=== PATIENT | female | born 1980 | race Caucasian/White ===

== ENCOUNTER → 2019-04-26 14:11 | Outpatient (CLI) | payer SELFPAY ==
[2019-04-26 13:20] VITALS: BMI 30.3
--- NOTE | 2019-04-26 14:21 | RAD_ITS ---
STUDY: X-RAY - RIGHT WRIST REASON FOR EXAM: Female, 38 years old. PAIN W/ ROM, HX FALL TECHNIQUE: 3 view(s) of the wrist were obtained. COMPARISON: None. FINDINGS: There is a transverse fracture of the distal radius extending to the distal radioulnar joint. There is approximately 2 mm of displacement. Normal radiocarpal articulation. Normal distal radioulnar articulation. Normal carpal bones. Normal carpal articulations. Normal carpometacarpal articulation of the thumb. Normal second through fifth carpometacarpal articulations. Normal visualized metacarpal bones. There is soft tissue swelling of the wrist. RAD/Wrist min 3 Views IMPRESSION: Distal radial fracture. Electronically Signed: Eris Burkett MD (Brooks) at 15:03 EST , Service support ,
== END ==
PROVIDERS: Family Provider Family Medicine; PCP Family Medicine; Referring Provider Physician Assistant Medical; Visit Provider Physician Assistant Medical
DX: M25.531 Pain in right wrist (principal)
CPT/HCPCS: 73110

== ENCOUNTER → 2019-04-30 14:27 | Outpatient (CLI) | payer SELFPAY ==
[2019-04-30 14:01] VITALS: BMI 30.3
--- NOTE | 2019-04-30 14:28 | RAD_ITS ---
STUDY: X-RAY - RIGHT WRIST REASON FOR EXAM: Female, 38 years old. Injury, fx, cast TECHNIQUE: 3 view(s) of the wrist were obtained. COMPARISON: 04/26/2019 FINDINGS: Cast material obscures underlying bony detail. Distal radial fracture is stable in alignment since the prior study. Normal radiocarpal articulation. Normal distal radioulnar articulation. Normal carpal bones. Normal carpal articulations. Normal carpometacarpal articulation of the thumb. Normal second through fifth carpometacarpal articulations. Normal visualized metacarpal bones. The soft tissue structures are grossly unremarkable. RAD/Wrist min 3 Views IMPRESSION: Stable alignment of distal radial fracture with cast. Electronically Signed: Eris Burkett MD (Bro[facility]) at 8:16 EST , Service support ,
== END ==
PROVIDERS: Family Provider Family Medicine; PCP Family Medicine; Referring Provider Orthopaedic Surgery; Visit Provider Orthopaedic Surgery
DX: S69.91XA Unspecified injury of right wrist, hand and finger(s), initial encounter (principal)
CPT/HCPCS: 73110

== ENCOUNTER → 2019-05-05 11:19 | Outpatient (CLI) | payer SELFPAY ==
[2019-05-05 11:19] VITALS: BMI 30.3
--- NOTE | 2019-05-05 11:20 | RAD_ITS ---
STUDY: X-RAY - RIGHT WRIST REASON FOR EXAM: Female, 38 years old. FX FOLLOW UP TECHNIQUE: 2 view(s) of the wrist were obtained. COMPARISON: 04/30/2019 FINDINGS: Healing nondisplaced nondilated transverse fracture the distal metaphysis of the radius. Normal radiocarpal articulation. Normal distal radioulnar articulation. Normal carpal bones. Normal carpal articulations. Normal carpometacarpal articulation of the thumb. Normal second through fifth carpometacarpal articulations. Normal visualized metacarpal bones. Fiberglas cast obscures soft tissue and bony detail. RAD/Wrist 2 Views IMPRESSION: Healing nondisplaced nonunited transverse fracture the distal metaphysis of the radius per Electronically Signed: Jim Sauceda MD at 11:34 EST Tel , Service support ,
== END ==
PROVIDERS: Family Provider Family Medicine; PCP Family Medicine; Referring Provider Orthopaedic Surgery; Visit Provider Orthopaedic Surgery
DX: S52.501A Unspecified fracture of the lower end of right radius, initial encounter for closed fracture (principal)
CPT/HCPCS: 73100

== ENCOUNTER → 2019-05-12 09:33 | Outpatient (CLI) | payer SELFPAY, OTHER ==
[2019-05-12 07:52] VITALS: BMI 30.3
--- NOTE | 2019-05-12 09:33 | RAD_ITS ---
HISTORY: FRACTURE ADDITIONAL HISTORY: None provided. TECHNIQUE: 3 views of the right wrist Number of images including paperwork: 3 COMPARISON: 05/05/2019 FINDINGS: Detail partially obscured by overlying fiberglass splint material. BONES: Mildly displaced, comminuted, intra-articular fracture of the right distal radius is noted with minimal increase in callus formation but without evidence of solid osseous union. No other definite fracture is visible on the current exam. JOINTS: No subluxation. SOFT TISSUES: No distinct foreign body. RAD/Wrist min 3 Views IMPRESSION: Right distal radius fracture with minimal interval healing. at 2226 Reported and signed by: Bessie Cook MD Electronically Signed: Bessie Cook MD at 22:25 EST Tel , Service support ,
== END ==
PROVIDERS: PCP Family Medicine; Referring Provider Orthopaedic Surgery; Visit Provider Orthopaedic Surgery
DX: S52.501D Unspecified fracture of the lower end of right radius, subsequent encounter for closed fracture with routine healing (principal)
CPT/HCPCS: 73110

== ENCOUNTER → 2019-05-21 10:43 | Outpatient (CLI) | payer SELFPAY ==
[2019-05-21 07:50] VITALS: BMI 30.3
--- NOTE | 2019-05-21 10:46 | RAD_ITS ---
STUDY: X-RAY - RIGHT WRIST REASON FOR EXAM: Female, 38 years old. Follow-up of distal radial fracture. TECHNIQUE: 3 view(s) of the wrist were obtained out of casting material. COMPARISON: May 12, 2019 FINDINGS: Comminuted minimally displaced healing fracture of the distal radius with slight impaction at the fracture site. No complications identified. Normal radiocarpal articulation. Normal distal radioulnar articulation. Normal carpal bones. Mild arthrosis of the radial carpal row. Stable arthrosis of the first CMC and visualized MCP joints. Normal visualized metacarpal bones. The soft tissue structures are unremarkable. RAD/Wrist min 3 Views IMPRESSION: Healing fracture of the distal radius with no complications. Osteoarthritic changes unaltered. Electronically Signed: Isra Anderson MD at 17:00 EST , Service support ,
== END ==
PROVIDERS: PCP Family Medicine; Referring Provider Orthopaedic Surgery; Visit Provider Orthopaedic Surgery
DX: S52.501D Unspecified fracture of the lower end of right radius, subsequent encounter for closed fracture with routine healing (principal)
CPT/HCPCS: 73110

== ENCOUNTER → 2019-06-04 08:38 | Outpatient (CLI) | payer SELFPAY ==
[2019-05-21 07:50] VITALS: BMI 30.3
--- NOTE | 2019-06-04 08:39 | RAD_ITS ---
STUDY: X-RAY - RIGHT WRIST REASON FOR EXAM: Female, 38 years old. FX FOLLOW UP TECHNIQUE: Follow-up for radial fracture. view(s) of the wrist were obtained. COMPARISON: Comparison is made with prior examination dated May 21, 2019. FINDINGS: Healing fracture of the distal radial metaphysis. The alignment is well maintained. Bony callus is seen. Normal radiocarpal articulation. Normal distal radioulnar articulation. Normal carpal bones. Normal carpal articulations. Normal carpometacarpal articulation of the thumb. Normal second through fifth carpometacarpal articulations. Normal visualized metacarpal bones. Residual soft tissue swelling. RAD/Wrist min 3 Views IMPRESSION: Healing distal radial fracture. Alignment is maintained. Electronically Signed: Cuco Boss, at 14:31 EST , Service support ,
== END ==
PROVIDERS: PCP Family Medicine; Referring Provider Orthopaedic Surgery; Visit Provider Orthopaedic Surgery
DX: S52.501D Unspecified fracture of the lower end of right radius, subsequent encounter for closed fracture with routine healing (principal)
CPT/HCPCS: 73110